=== PATIENT | female | born 1945 | race Caucasian/White ===

== ENCOUNTER 2022-05-20 08:52 | Emergency (ER) | payer MEDICARE, SELFPAY ==
[2022-05-20 08:53] VITALS: BP 168/107; PULSE 66; RESP 16; TEMP 36.8; O2SAT 97; BMI 19.5
--- NOTE | 2022-05-20 09:34 | CT_ITS ---
EXAM: CT HEAD WITHOUT INTRAVENOUS CONTRAST CLINICAL INDICATION: disequilibrium TECHNIQUE: Multiple axial images were obtained of the head without intravenous contrast. This CT exam was performed using one or more of the following dose reduction techniques: automated exposure control, adjustment of the mA and/or kV according to patient size, and/or use of iterative reconstruction technique. This report was created using [employer] report generation technology. COMPARISON: None. FINDINGS: BRAIN AND EXTRA-AXIAL SPACES: Prominence of the cortical sulci and ventricles related to volume loss change. No intra- or extra-axial hemorrhage. No evidence of acute infarct. No intracranial mass or mass effect. There is preservation of the morfin/white matter interface. Posterior fossa structures are unremarkable. Basal cisterns are patent. BONES/JOINTS: Normal. No discrete lytic or blastic abnormalities. SINUSES: Mucosal thickening of the paranasal sinuses noted. MASTOID AIR CELLS: Normal. Clear. ORBITS: Visualized globes, extraocular muscles, optic nerves and retrobulbar fat appear unremarkable. CT/Brain/Head without Contrast IMPRESSION: 1. No acute intracranial abnormality. 2. Senescent changes. Electronically Signed: Jesse Jara MD at 11:30 EDT ,
--- NOTE | 2022-05-20 09:35 | EKG12_ITS ---
Test Reason : DIZZY Blood Pressure : / mmHG Vent. Rate : 057 BPM Atrial Rate : 057 BPM P-R Int : 150 ms QRS Dur : 080 ms QT Int : 372 ms P-R-T Axes : 014 010 060 degrees QTc Int : 362 ms Sinus bradycardia with sinus arrhythmia Otherwise normal ECG Confirmed by AMADO GUERRA, VERNA ([id number]), fan mail editor MORGAN BYNUM ([id number]) on 05/22/2022 9:07:24 AM Referred By: Confirmed By:VERNA FISCHER MD
--- NOTE | 2022-05-20 09:38 | EDS_ITS ---
HPI History of Present Illness Chief Complaint: Dizziness Narrative Narrative: Patient presents with disequilibrium that has been chronic for over a month but got somewhat worse today. 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 She has no vision changes, no weakness or paresthesias, no speech difficulties. She has no chest pain or shortness of PFSH PFSH Allergy/AdvReac Type Severity Reaction Status Date / Time No Known Allergies Allergy Verified 05/20/22 08:54 Social History Smoking Status: Never smoker ROS ROS ED ROS Narrative Past medical history: Reviewed Medications: Reviewed Social history: Noncontributory Review of systems: All systems negative except as indicated General: No fever Eyes: No visual changes ENT: No upper airway congestion, normal voice Neck: No neck pain Cardiovascular: No chest pain. She does not feel lightheaded. Respiratory: No shortness of breath or cough Gastrointestinal: No abdominal pain, nausea vomiting or diarrhea Genitourinary: No dysuria Musculoskeletal: Denies myalgias no difficulty with ambulation Skin: No rash Neurological: No memory loss, confusion or any focal weakness. Dizziness which she describes of off balance. Psych: No recent behavioral changes Hematologic: No easy bleeding or easy bruising EXAM Physical Exam Narrative Exam Narrative: Physical exam General: Well nourished, Well developed, No Acute Distress Head: Normocephalic, Atraumatic Eyes: Conjunctiva not pale ENT: Moist mucous membranes Neck: Supple, Nontender, No lymphadenopathy Cardiovascular: Regular rate, Regular rhythm Respiratory: No distress, CTA bilaterally Abdomen: Soft, Nontender, Nondistended Back: Nontender, Normal Inspection. Negative for: CVA tenderness Extremities: Nontender, No edema Skin: Normal color, No rash Neurological: Alert, Normal Strength, Normal Sensation. She has normal cerebellar, her Romberg is normal. She is slightly weak when she ambulates but she can ambulate in a straight line without any difficulty Psychological: Normal affect Const Vital Signs: 05/20/22 08:53 05/20/22 09:42 05/20/22 09:44 Temperature 98.2 F Temperature Source Temporal Pulse Rate 66 72 Respiratory Rate 16 16 Respiratory Effort Normal Blood Pressure 168/107 H 218/77 H Blood Pressure Mean 127 124 Pulse Ox 97 98 Oxygen Delivery Method Room Air Room Air 05/20/22 10:12 05/20/22 11:45 Temperature Temperature Source Pulse Rate 78 Respiratory Rate 17 Respiratory Effort Blood Pressure 205/70 H 186/59 H Blood Pressure Mean 115 101 Pulse Ox 98 Oxygen Delivery Method Simple Mask Room Air MDM MDM MDM Narrative Medical decision making narrative: Patient says she is off balance but overall she can walk relatively well, this is chronic for over a month, I will discharge her, she has an appointment Saturday with her oncologist for planning her cancer treatment. Anything changes she is to return Lab Data Labs: Laboratory Results - last 24 hr 05/20/22 05/20/22 09:40 09:40 WBC 7.8 RBC 3.58 L Hgb 9.7 L Hct 30.9 L MCV 86.3 MCH 27.1 MCHC 31.4 L RDW Std Deviation 45.0 H RDW Coeff of Percy 14.3 Plt Count 173 MPV 9.8 Immature Gran % (Auto) 0.300 Neut % (Auto) 81.0 H Lymph % (Auto) 9.8 L [place] % (Auto) 7.1 Eos % (Auto) 1.3 Baso % (Auto) 0.5 Absolute Neuts (auto) 6.3 Absolute Lymphs (auto) 0.76 L Nucleated RBC % 0 Sodium 137 Potassium 4.3 Chloride 106 Carbon Dioxide 27.0 Anion Gap 4 L BUN 18 Creatinine 1.01 Estim Creat Clear Calc 39.29 Est GFR (MDRD) Af Amer 69 Est GFR (MDRD) Non-Af 57 L BUN/Creatinine Ratio 17.8 Glucose 207 H Calcium 8.8 Total Bilirubin 0.30 AST 18 ALT 13 Alkaline Phosphatase 64 Troponin I High Sens 6 Total Protein 7.3 Albumin 2.8 L Globulin 4.5 H Albumin/Globulin Ratio 0.6 L Radiography Diagnostic Testing: Clinical Impression(s) from Imaging Studies Brain CT 05/20/22 09:34 IMPRESSION: 1. No acute intracranial abnormality. 2. Senescent changes. Electronically Signed: Jesse Jara MD at 11:30 EDT , Discharge Plan Triage Chief Complaint: Dizziness ED Provider: Jourdan Richter Dx/Rx/DC Orders Clinical Impression: Balance disorder, Metastatic cancer Instructions: Dizziness Balance Probs Fainting, ED Fall Prevention Primary Care Provider: SALLY BAIRD Referrals: [facility] Doctor,Out of [NON-STAFF] - 3-5 Days Activity Restrictions/Additional Instructions: Follow-up with your oncologist this Saturday as scheduled Disposition Disposition: Home, Self Care
[2022-05-20 09:42] VITALS: BP 218/77; PULSE 72; RESP 16; O2SAT 98
--- NOTE | 2022-05-20 09:46 | ED.RN ---
PATIENT ABLW TO SWALLOW IWTHOUT DIFFICULTY, NO ISSUES CLEARING OF THROAT OR COUGHIN.G
[2022-05-20] MEDS: Meclizine HCl 25 MG Tablet PO (09:49)
[2022-05-20 09:53] LABS: Absolute Lymphocyte Count 0.76 X10^3/uL (0.83-4.51); Absolute Neutrophil Count 6.3 X10^3/uL (2.0-7.7); Basophil# 0.04 X10^3/uL; Basophil% 0.5 % (0-1); Eosinophils% 1.3 % (0-5); Hematocrit 30.9 % (37-47); Hemoglobin 9.7 g/dL (12.0-15.0); Lymphocyte # 0.76 X10^3/ul (0.83-4.51); Lymphocyte % 9.8 % (19-41); Mean Corp Hgb Conc 31.4 g/dL (32-36); Mean Corpuscular Hgb 27.1 pg (27.0-32.0); Mean Corpuscular Volume 86.3 fL (81-99); Mean Platelet Vol. 9.8 fl (6.2-12.0); Monocyte# 0.55 X10^3/uL; Monocyte% 7.1 % (0-10); NRBC Flagged by Analyzer 0 % (0-5); Neutrophil # 6.28 X10^3/uL (2.7-7.7); Platelet Count 173 K/mm3 (150-450); RBC Distribution Width CV 14.3 % (11.6-14.6); Red Blood Count 3.58 M/mm3 (4.2-5.4); White Blood Count 7.8 K/mm3 (4.4-11.0)
[2022-05-20 10:03] LABS: ALB/GLOB Ratio 0.6 RATIO (0.9-2.4); AST(SGOT) 18 U/L (15-37); Alanine Aminotransfer ALT/SGPT 13 U/L (13-56); Albumin, Serum 2.8 g/dL (3.2-5.0); Alkaline Phosphatase 64 U/L (45-117); Anion Gap 4 (5-15); BUN 18 mg/dL (7-18); BUN/Creat Ratio 17.8 RATIO (10-20); Calcium,Total 8.8 mg/dL (8.5-10.1); Chloride 106 mmol/L (98-107); Creatinine, Serum 1.01 mg/dL (0.55-1.02); EST Glomerular Filtration Rate 57 mL/min (>60); Est Glom Filt Rate - Afr Amer 69 mL/min (>60); Estimated Creatinine Clearance 39.29 ml/min; Globulin 4.5 g/dL (2.2-4.2); Glucose 207 mg/dL (74-106); Potassium 4.3 mmol/L (3.5-5.1); Protein, Total 7.3 g/dL (6.4-8.2); Sodium Level 137 mmol/L (136-145); Troponin-I HS 6 pg/mL (3.0-54.0)
[2022-05-20 10:12] VITALS: BP 205/70
[2022-05-20 11:45] VITALS: BP 186/59; PULSE 78; RESP 17; O2SAT 98
[2022-05-20 12:14] VITALS: BP 184/86; PULSE 78
== END 2022-05-20 12:26 | disposition home or self-care (01) ==
PROVIDERS: Emergency Provider Emergency Medicine; Visit Provider Emergency Medicine
DX: R42 Dizziness and giddiness (principal); C79.9 Secondary malignant neoplasm of unspecified site
CPT/HCPCS: 70450; 80053; 84484; 85025; 93005; 99284